=== PATIENT | female | born 1970 | race Caucasian/White ===

== ENCOUNTER 2023-11-05 09:50 | Day surgery (SDC) | payer MEDICAID ==
[~2023-11-05 09:50] MED LIST: Sodium Chloride 0.9% 10 ML Syringe FLUSH PRN; Sodium Chloride 0.9% 2.5 ML Syringe FLUSH PRN; Sodium Chloride 0.9% 20 ML SDV IV PRN
[2023-11-05] MEDS: Lactated Ringers 1,000 ML IV SCH (10:58)
[2023-11-05] MEDS ORDERED: propofoL 50 ML ONE (12:03)
[2023-11-05] MEDS ORDERED: Propofol 200 MG/20 ML SDV ONE (12:19)
== END 2023-11-05 13:21 | disposition home or self-care (01) ==
LOC: MW.SDS 09:50
PROVIDERS: ATTEND Surgery
DX: D12.5 Benign neoplasm of sigmoid colon (principal); D12.3 Benign neoplasm of transverse colon; K21.00 Gastro-esophageal reflux disease with esophagitis, without bleeding; K31.7 Polyp of stomach and duodenum; K57.30 Diverticulosis of large intestine without perforation or abscess without bleeding; E11.9 Type 2 diabetes mellitus without complications; E66.9 Obesity, unspecified; Z68.29 Body mass index [BMI] 29.0-29.9, adult
CPT/HCPCS: 43239; 45381; 45385; J2704; J7120